=== PATIENT | male | born 1960 | race Caucasian/White ===

== ENCOUNTER → 2019-02-05 09:31 | Outpatient (CLI) | payer BC ==
--- NOTE | ~2019-02-05 | ST ---
PATIENT:JENNIFER HAND MEDICAL RECORD: [id number] SEX: M LOCATION:[facility] ORDER #: ADMISSION DATE: 02/05/19 AGE OF PATIENT: 58 REFERRING PHYSICIAN: INTERPRETING PHYSICIAN: GERALDINE WINCHESTER MD DATE OF SERVICE: 02/05/2019 PROCEDURE: Nuclear stress test. INDICATIONS: Shortness of breath, abnormal ECG, atrial fibrillation. He was exercised on standard Lexiscan protocol with 33 mCi of sestamibi injected at peak stress, 11 mCi were used previously for rest images. FINDINGS: SPECT imaging reveals a dilated cardiomyopathy, ejection fraction of 32%, decreased thickening and brightening throughout the inferior and apical segments. SPECT imaging: Sestamibi was used as a myocardial perfusion agent. There is a definite fixed perfusion defect at the apex, mixed perfusion defect in the inferior wall, partially fixed, partially reversible. The remaining segments with homogeneous uptake at rest and stress. OVERALL IMPRESSION: This is an abnormal nuclear stress test suggestive of an ischemic cardiomyopathy, ejection fraction of 32% with apical fixed perfusion defect from a previous myocardial infarction; however, continued reversibility throughout the inferior segments suggestive of ongoing hemodynamically significant coronary artery disease. This is at least an intermediate possibly high risk study secondary to the low ejection fraction, ongoing ischemic burden throughout and moderate amount of myocardium. Would proceed with coronary angiography as a followup study. TRANSINT:[id number] Voice Confirmation ID: [id number] DOCUMENT ID: [id number] GERALDINE WINCHESTER MD CC: [id number] DICTATION DATE: 02/06/19 1553 COUNSELOR MANAGER: 02/07/19 1005 DEP CLI 02/05/19 [address] [address] [id number] [place] [id number]
--- NOTE | ~2019-02-05 | EC ---
PATIENT:JENNIFER HAND DATE OF SERVICE: 02/05/19 SEX: M MEDICAL RECORD: [id number] DATE OF : 56 LOCATION:[facility] AGE OF PATIENT: 58 ADMISSION DATE: 02/05/19 REFERRING PHYSICIAN: INTERPRETING PHYSICIAN: GERALDINE OLMSTEAD MD ECHOCARDIOGRAM REPORT ECHO CHARGES 4 ECHO COMPLETE Date: 02/05/19 CLINICAL DIAGNOSIS: ATRIAL FIB ECHOCARDIOGRAPHIC MEASUREMENTS (adult normal given) AC root (d.<3.7cm) 4.2 cm LV Septum d (<1.2 cm> 1.4 cm Valve Excursion 2.2 cm LV Septum (systole) 1.5 cm Left Atria (s.<4.0cm> 4.6 cm LVPW d(<1.2cm) 1.6 cm RV (d.<2.3cm) 5.3 cm LVPW (sytole) 1.7 cm LV diastole(<5.6CM) 6.4 cm MV E-F(>70mm/sec) cm LV systole 5.7 cm LVOT Diameter 2.0 cm MV exc.(>10mm) 1.8 cm Est.ejection fraction (50-75%) % DOPPLER: LVIT cm/sec A 29.0 cm/sec E 87.0 cm/sec LA cm/sec RVSP 42 mmHg LVOT 103 cm/sec AOP1/2T m/s Asc. Ao 146 cm/sec RVOT 69 cm/sec RA cm/sec PA 99 cm/sec AV Gradient Peak 8.51 mmHg AV Mean 4.75 mmHg AV Area 2.6 cm MV Gradient Peak 4.39 mmHg MV Mean 1.43 mmHg MV Area cm COMMENTS: Veneer Sorter: Aysha ZELAYA Rail Car Maintenance Mechanic: 1 Dr. Olmstead TAPE# PACS Pericardial Effusion N DATE OF SERVICE: 02/05/2019 FINDINGS: 1. Left ventricular chamber size is dilated. Left ventricular systolic function is markedly reduced. Overall ejection fraction 25% to 30%. 2. Left atrium is dilated at 4.6 cm. Right atrium and right ventricular chamber sizes are as well moderately dilated giving 4-chamber dilatation. 3. Valvular structures have normal structure and motion. 4. Doppler interrogation reveals mild mitral regurgitation, mild tricuspid regurgitation, no other valvular insufficiency or stenosis. Pulmonary systolic ECHOCARDIOGRAM REPORT [id number] JENNIFER HAND pressure is estimated at 42 mmHg. 5. No evidence of pericardial effusion or left ventricular thrombus. 6. The patient is in atrial fibrillation during the study. TRANSINT:[id number] Voice Confirmation ID: [id number] DOCUMENT ID: [id number] GERALDINE OLMSTEAD MD CC: [id number] DICTATION DATE: 02/06/19 1025 SKEIN WINDER: 02/06/19 1105 DEP CLI 02/05/19 [facility] [address] [place] [id number]
== END | disposition home or self-care (01) ==
LOC: D.HCCARDIO 09:31
PROVIDERS: ATTEND Internal Medicine Interventional Cardiology
DX: I48.91 Unspecified atrial fibrillation (principal)

== ENCOUNTER 2019-02-15 09:00 | Outpatient (CLI) | payer BC | END 2019-02-15 14:30 | disposition home or self-care (01) | LOC: D.CATH 09:00 | DX: I20.9 Angina pectoris, unspecified (principal); R94.30 Abnormal result of cardiovascular function study, unspecified; I48.91 Unspecified atrial fibrillation ==

== ENCOUNTER 2019-02-27 09:57 | Outpatient (CLI) | payer BC ==
[~2019-02-27] VITALS: Ht 182.9 cm; Wt 100.0 kg
--- NOTE | ~2019-02-27 | HEMODYNAMI ---
PATIENT:JENNIFER HAND MEDICAL RECORD: [id number] : 56 LOCATION:[facility] ADMISSION DATE: 02/27/19 Generatedon:02/27/201911:25 Patient name: JENNIFER HAND Patient #: [id number] SSN: : 1960 Date of study: 02/27/2019 Page: Of Hemodynamic Procedure Report Patient Data Patient Demographics Procedure consent was obtained First Name: JENNIFER Gender: Male Last Name: PEACE : 1960 Patient #: [id number] Age: 58 year(s) Race: Unknown Additional ID: [id number] Contact details [address]: [address] [place] [address] State: [place] City: [place] Zip code: [address] Past Medical History Allergies: No known allergies Admission Admission Data Admission Date: 02/27/2019 Admission Time: 9:57 Admit Source: Other Insurance Payor: Private health insurance Height (in.): 72.05 BSA: 2.22 (m2) Height (cm.): 183 BMI: 29.86 (kg/m2) Weight (lbs.): 220.46 Weight (kg.): 100 Lab Results Lab Result Date: 02/27/2019 Lab Result Time: 0:00 Biochemistry Name Units Result Min Max BUN mg/dl 23 --(----)-* 7 18 Creatinine mg/dl 0.9 --(-*--)-- 0.6 1.3 CBC Name Units Result Min Max Hemoglobin g/dl 16.2 --(--*-)-- 13.5 17.5 Procedure Procedure Types Cath Procedure Diagnostic Procedure Cardioversion External Procedure Description Procedure Date Procedure Date: 02/27/2019 Procedure Start Time: 11:14 Procedure End Time: 11:16 Procedure Staff Name Function Antonio Olmstead MD Performing Physician Kacey Wilkinson RT Monitor Phillip Walsh RT Scrub Chiquis Garay RN Nurse Johnny Randall Jr, CRNA Additional personnel Procedure Data Cath Procedure Fluoroscopy Diagnostic fluoroscopy Total fluoroscopy Time: 0 time: 0 min min Diagnostic fluoroscopy Total fluoroscopy dose: 0 dose: 0 mGy mGy Contrast Material Contrast Material Type Amount (ml) Isovue 370 0 Estimated blood loss: 0 ml Procedure Complications No complications Procedure Medications Medication Administration Route Dosage 0.9% NaCl I.V. 100 ml/hr Oxygen etCO2 Nasal cannula 2 l/min Refer to Anesthesia Notes for Sedation Medications Hemodynamics Rest BSA: 2.22 (m2) HGB: 16.2 (g/dl) O2 Consumption: Estimated: 271.64 (ml/min) O2 Consumption indexed: Estimated:122.36 (ml/min/m) Heart Rate: 83 (bpm) Snapshots Pre Cath Intra NCS Post Cath Vital Signs Time Heart Resp SPO2 etCO2 NIBP (mmHg) Rhythm Pain Sedation Rate (ipm) (%) (mmHg) Status Level (bpm) 11:07:49 88 23 100 31.4 136/100(111) A-Fib 0 (11) 10(A) , No pain 11:11:50 90 25 100 29.2 127/96(112) A-Fib 0 (11) 10(A) , No pain 11:15:48 65 20 98 29.9 121/84(99) NSR 0 (11) 5(A) , No pain 11:23:33 67 20 99 29.9 128/96(100) NSR 0 (11) 10(A) , No pain 11:24:45 0 Aborted NSR 0 (11) 10(A) , No pain Medications Time Medication Route Dose Verified Delivered Reason Notes Effective ness by by 11:09:37 0.9% NaCl I.V. 100 Antonio Siuyla used for ml/hr Ishan Garay gore seamer 11:09:44 Oxygen etCO2 2 Antonio Chiquis used for Nasal l/min Ishan Garay procedure cannula RN 11:09:50 Refer to Antonio Sim Anesthesia Ishan Garay Notes for RN Sedation Medications Procedure Log Time Note 10:55:22 Informed consent obtained and on chart 10:55:28 Diagnostic Cath Status : Elective 10:55:52 Kacey Wilkinson RT(R) sent for patient. Start room use. 10:55:53 Time tracking: Regular hours (M-F 7:00 - 5:00) 10:55:58 Plan of Care:Hemodynamics will remain stable., Cardiac rhythm will remain stable., Comfort level will be maintained., Respiratory function will remain adequate., Patient/ family verbilizes understanding of procedure., Procedure tolerated without complication., Recovers from procedure without complications.. 10:59:47 Lab Result : Hemoglobin 16.2 g/dl 10:59:47 Lab Result : Creatinine 0.9 mg/dl 10:59:47 Lab Result : BUN 23 mg/dl 11:02:01 Patient received from Pre/Post Procedure Room to CCL 2 Alert and oriented. Tansferred to table in Supine position. 11:02:02 Warm blankets applied, and rosalind hugger turned on for patient comfort. 11:02:03 Correct patient and procedure confirmed by team. 11:02:03 ECG and BP/O2 sat monitors applied to patient. 11:06:58 Vital chart was started 11:07:29 Baseline sample Acquired. 11:07:35 Rhythm: atrial fibrillation 11:07:36 Full Disclosure recording started 11:07:40 H&P Date Dictated: 02/27/2019 Within 30 days and on chart., H&P Addendum completed by physician on day of procedure. (MUST COMPLETE FOR ALL OUTPATIENTS). 11:07:41 Pre-procedure instructions explained to patient. 11:07:42 Pre-op teaching completed and patient verbalized understanding. 11:07:43 Family in patients room. 11:07:45 Patient NPO since Midnight. 11:07:47 Is the patient allergic to Iodine/contrast media? No. 11:07:48 Was the patient premedicated? No 11:07:49 Is patient on blood thinner?Yes 11:07:53 ACC The patient was administered the following blood thiners within the last 24 hours: Eliqubandar 11:07:56 Patient diabetic? No. 11:07:58 Previous problem with sedation/anesthesia? No ? 11:08:00 Snore? Yes 11:08:01 Sleep apnea? No 11:08:02 Deviated septum? No 11:08:02 Opens mouth fully? Yes 11:08:03 Sticks out tongue? Yes 11:08:05 Airway obstruction? No ? 11:08:07 Dentures? No ? 11:08:10 Pre procedure: right dorsailis pedis pulse 2+ Normal; easily identifiable; not easily obliterated 11:08:12 Pre procedure: left dorsailis pedis pulse 2+ Normal; easily identifiable; not easily obliterated 11:08:14 Patient pain scale 0/10 ?. 11:08:19 IV patent on arrival in left antecubital with 0.9% NaCl at [facility]. 11:08:22 Lab results completed and on chart. 11:08:30 Alarms reviewed by R. N. 11:08:30 Sharps counted by scrub and verified by R.N. 11::00 Admit Source: Other 11:: Patient Weight : 220.46 lbs 11::08 Patient Height : 72.05 inches 11:09:37 0.9% NaCl 100 ml/hr I.V. was administered by Chiquis Garay RN; used for procedure; 11::44 Oxygen 2 l/min etCO2 Nasal cannula was administered by Chiquis Garay RN; used for procedure; 11::50 Refer to Anesthesia Notes for Sedation Medications was administered by Chiquis Garay RN; ; 11:10:25 Insurance Payor : Private health insurance 11:12:50 Physician arrived 11:12:50 --------ALL STOP TIME OUT------ 11:12:50 Final Timeout: patient, procedure, and site verified with staff and physician. All members of the team are in agreement. 11:13:00 Procedure started. 11:13:04 Maximum allowable Isovue 370 dose 300ml. Physician notified. (300ml for normal creatinines. For patients with creatinine of 1.7 or higher multiply weight(kg) x 5 divided by creatinine.) 11:13:08 Fire Safety Assessment: A--An alcohol-based skin anteseptic being used preoperatively., C--Open oxygen or nitrous oxide is being used., D--An ESU, laser, or fiber-optic light is being used. 11:13:16 Physical assessment completed. ASA score P 2 - A patient with mild systemic disease as per Antonio Olmstead MD. 11:13:21 Sedation plan: TIVA Medication:Propofol 11:13:36 Quick combo pads placed on patients chest and back. 11:13:40 Defibrillator synced and charged to 275 Joules. 11:14:49 Shock delivered. 11:15:05 Patient cardioverted to sinus rhythm . 11:15:17 Procedure ended.(Physican Out) 11:16:01 Fluoroscopy time 00.00 minutes. 11:16:03 Fluoroscopy dose: 0 mGy 11:16:03 Flurop Dose total: 0 11:16:07 Contrast amount:Isovue 370 0ml. 11:16:08 Sharps counted by scrub and verified by R.N. 11:16:16 Post procedure rhythm: sinus rhythm 11:16:18 Estimated blood loss: 0 ml 11:16:19 Post procedure instruction explained to patient.Patient verbalizes understanding. 11:16:20 Patient needs reinforcement of post procedure teaching. 11:16:37 Procedure type changed to Cath procedure, Diagnostic procedure, Cardioversion External 11:16:38 Procedure and supply charges have been captured, reviewed, submitted and are correct. 11:16:43 Procedure Complication : No complications 11:16:45 Vital chart was stopped 11:16:45 See physician's report for complete and final results. 11:16:48 Report given to Pre/Post Procedure Room. 11:16:52 Patient transfered to Pre/Post Procedure Room with Stretcher. 11:16:56 Procedure ended. 11:16:56 Full Disclosure recording stopped 11:17:07 End room use (Document Last) Signature Audit Earlimart Stage Time Signature Unsigned Intra-Procedure 02/27/2019 Kacey Wilkinson 11:25:00 AM RT(R) Signatures Monitor : Kacey Wilkinson RT Signature : Date : Time : [place] [id number] [place] [address]
[~2019-02-27 09:57] MED LIST: BETAPACE 80 MG80 MG PO; ELIQUIS5 MG PO; ULTRAM50 MG PO
[2019-02-27 10:30] VITALS: BP 130/91; Ht 182.9 cm; Wt 100.0 kg
[2019-02-27 10:42] LABS: BASOPHILS 0.3 % (0-2); EOSINOPHILS 1.2 % (0-7); HEMATOCRIT 44.2 % (42.0-54.0); HEMOGLOBIN 16.2 g/dL (13.5-17.5); IMMATURE GRANULOCYTES 0.3 % (0-5); LYMPHOCYTES 26.7 % (15-50); MCH 30.7 pg (26.0-34.0); MCHC 36.7 g/dL (31.0-37.0); MCV 83.9 fL (80.0-100.0); MONOCYTES 11.6 % (2-11); NEUTROPHILS 59.9 % (40-80); PLATELET COUNT 194 10x3/uL (130-400); RBC 5.27 10x6/uL (4.20-6.10); RDW 12.3 % (11.5-14.5); WBC 7.4 10x3/uL (4.8-10.8)
[2019-02-27 10:49] LABS: CALC OSMOLALITY 282 mosm/kg (275-300); CALCIUM 9.4 mg/dL (8.5-10.1); CARBON DIOXIDE 25.3 mmol/L (21.0-32.0); CHLORIDE - SERUM 106 mmol/L (98-107); CREATININE - SERUM 0.9 mg/dL (0.6-1.3); GLUCOSE 105 mg/dL (74-106); SODIUM 140 mmol/L (136-145); UREA NITROGEN 23 mg/dL (7-18); eGFR NON AFRICAN AMERICAN > 90 mL/min (90-120)
[2019-02-27 10:50] LABS: POTASSIUM - SERUM 5.4 mmol/L (3.5-5.1)
[2019-02-27 10:53] LABS: INR 1.14 (0.85-1.17); PROTIME 14.1 SECONDS (11.6-15.0)
--- NOTE | 2019-02-27 11:28 | NUR ---
PT ARRIVED BY STRETCHER. PLACED ON MONITORS. ASSESSMENT COMPLETED. PT IN SINUS RHYTHM ON MONITOR. CALL LIGHT WITHIN REACH
--- NOTE | 2019-02-27 11:40 | NUR ---
PT SET UP WITH SANDWICH TRAY AND DRINK. DENIES NAUSEA. VSS. SINUS RHYTHM RATE 73.
--- NOTE | 2019-02-27 12:11 | NUR ---
LEFT HAND PIV D/C'D WITH CATH TIP INTACT. PT TOLERATED WELL. VSS. PT IN NSR.
--- NOTE | 2019-02-27 12:23 | NUR ---
PT UP AND DRESSED. DISCUSSED DISCHARGE INSTRUCTIONS WITH PT. HE VOICED UNDERSTANDING. TAXI CALLED PER PT REQUEST. AMBULATED TO RESTROOM. VOIDED WITHOUT DIFFICULTY.
--- NOTE | 2019-02-27 12:30 | NUR ---
PT TAKEN OUT TO [facility] BY WHEELCHAIR. ALL BELONGINGS AND PAPERWORK IN HAND. NO S/S OF DISTRESS NOTED.
--- NOTE | 2019-03-01 09:40 | OP ---
PATIENT NAME: JENNIFER HAND MEDICAL RECORD: [id number] :56 LOCATION:D.CAT ADMISSION DATE: SURGEON: GERALDINE WINCHESTER MD DATE OF OPERATION: 02/27/2019 PROCEDURE: DC cardioversion. INDICATION: Atrial fibrillation. PROCEDURE IN DETAIL: IV conscious sedation was per anesthesia. He received 1 shock at 275 joules restoring sinus rhythm. Continuous heart rate, O2 saturation, blood pressure monitoring all undertaken, all of which remained stable. OVERALL IMPRESSION: Successful DC cardioversion from atrial fibrillation to sinus rhythm. TRANSINT:[id number] Voice Confirmation ID: [id number] DOCUMENT ID: [id number] GERALDINE WINCHESTER MD at 0940 CC: [id number] DICTATION DATE: 02/27/19 1116 UNIT SUPERVISOR: 02/27/19 1245 DEP CLI 02/27/19 [id number] [place] [address]
== END 2019-02-27 12:30 | disposition home or self-care (01) ==
LOC: D.CATH 09:57
PROVIDERS: ATTEND Internal Medicine Interventional Cardiology
DX: I48.91 Unspecified atrial fibrillation (principal); Z01.812 Encounter for preprocedural laboratory examination

== ENCOUNTER 2019-06-11 09:46 | Outpatient (CLI) | payer BC ==
[~2019-06-11] VITALS: Ht 182.9 cm; Wt 100.0 kg
--- NOTE | ~2019-06-11 | HEMODYNAMI ---
PATIENT:JENNIFER HAND MEDICAL RECORD: [id number] : 56 LOCATION:D.CAT ADMISSION DATE: 06/11/19 Generatedon:06/11/201912:48 Patient name: JENNIFER HAND Patient #: [id number] SSN: : 1960 Date of study: 06/11/2019 Page: Of Hemodynamic Procedure Report Patient Data Patient Demographics Procedure consent was obtained First Name: JENNIFER Gender: Male Last Name: PEACE : 1960 Patient #: [id number] Age: 58 year(s) Race: Unknown Additional ID: [id number] Contact details Address: [address] [place] [address] State: [place] City: [place] Zip code: [address] Past Medical History Allergies: No known allergies Admission Admission Data Admission Date: 06/11/2019 Admission Time: 9:46 Procedure Procedure Types Cath Procedure Diagnostic Procedure Cardioversion External Procedure Description Procedure Date Procedure Date: 06/11/2019 Procedure Start Time: 12:37 Procedure End Time: 12:42 Procedure Staff Name Function Antonio Olmstead MD Performing Physician Phillip Walsh RT Monitor Becky Burch RT Service Desk Associate Scott Arriaga RN Nurse Richardson Travis CRNA Additional personnel Procedure Data Cath Procedure Fluoroscopy Diagnostic fluoroscopy Total fluoroscopy Time: 0 time: 0 min min Diagnostic fluoroscopy Total fluoroscopy dose: 0 dose: 0 mGy mGy Contrast Material Contrast Material Type Amount (ml) Isovue 300 0 Estimated blood loss: 0 ml Procedure Complications No complications Procedure Medications Medication Administration Route Dosage 0.9% NaCl I.V. 100 ml/hr Oxygen etCO2 Nasal cannula 5 l/min Refer to Anesthesia Notes for Sedation Medications Hemodynamics Rest Heart Rate: 100 (bpm) Snapshots Pre Cath Intra NCS Post Cath Vital Signs Time Heart Resp SPO2 etCO2 NIBP (mmHg) Rhythm Pain Sedation Rate (ipm) (%) (mmHg) Status Level (bpm) 12:19:30 93 24 99 32.2 128/90(115) NSR 0 (11) 10(A) , No pain 12:23:37 86 23 99 32.3 131/83(115) NSR 0 (11) 10(A) , No pain 12:28:30 86 14 98 30.7 138/90(104) NSR 0 (11) 10(A) , No pain 12:32:38 97 23 98 33.7 141/97(110) NSR 0 (11) 10(A) , No pain 12:36:46 91 25 99 21 139/96(113) NSR 0 (11) 8(A) , No pain 12:40:51 64 32 97 28.4 116/103(114) NSR 0 (11) 9(A) , No pain Medications Time Medication Route Dose Verified Delivered Reason Notes Effective ness by by 12:20:29 0.9% NaCl I.V. 100 Scott Scott Per ml/hr Corina Arriaga physician RN RN 12:20:45 Oxygen etCO2 5 Scott Scott for low Nasal l/min Lorigan Gracieigan 02 sats cannula RN RN 12:36:50 Refer to Scott Scott for Anesthesia Corina Arriaga sedation Notes for RN RN Sedation Medications Procedure Log Time Note 11:55:08 Becky Burch RT(R) sent for patient. Start room use. 12:13:10 Time tracking: Regular hours (M-F 7:00 - 5:00) 12:13:16 Plan of Care:Hemodynamics will remain stable., Cardiac rhythm will remain stable., Comfort level will be maintained., Respiratory function will remain adequate., Patient/ family verbilizes understanding of procedure., Procedure tolerated without complication., Recovers from procedure without complications.. 12:13:27 Patient arrived from Pre/Post Procedure Room to CCL 2. Patient remains on bed/stretcher for procedure. 12:13:29 Signed procedure consent form obtained from patient. 12:13:30 Warm blankets applied, and rosalind hugger turned on for patient comfort. 12:13:30 Correct patient and procedure confirmed by team. 12:13:31 ECG and BP/O2 sat monitors applied to patient. 12:17:44 Vital chart was started 12:17:45 Baseline sample Acquired. 12:17:51 Rhythm: atrial fibrillation 12:18:09 Richardson Travis CRNA present and monitoring patient for TIVA. 12:20:17 H&P Date Dictated: 05/29/2019 Within 30 days and on chart., H&P Addendum completed by physician on day of procedure. (MUST COMPLETE FOR ALL OUTPATIENTS). 12:20:18 Pre-procedure instructions explained to patient. 12:20:18 Pre-op teaching completed and patient verbalized understanding. 12:20:20 Family in patients room. 12:20:21 Patient NPO since Midnight. 12:20:22 Is the patient allergic to Iodine/contrast media? No. 12:20:24 Is patient on blood thinner?Yes 12:20:26 ACC The patient was administered the following blood thiners within the last 24 hours: Eliquis 12:20:28 Patient diabetic? No. 12:20:29 0.9% NaCl 100 ml/hr I.V. was administered by Scott Arriaga RN; Per physician; 12:20:31 Previous problem with sedation/anesthesia? No ? 12:20:32 Snore? Yes 12:20:33 Sleep apnea? No 12:20:34 Deviated septum? No 12:20:34 Opens mouth fully? Yes 12:20:35 Sticks out tongue? Yes 12:20:37 Airway obstruction? No ? 12:20:38 Dentures? No ? 12:20:45 Oxygen 5 l/min etCO2 Nasal cannula was administered by Scott Arriaga RN; for low 02 sats; 12:20:50 Patient pain scale 0/10 ?. 12:21:34 IV patent on arrival in left forearm with 0.9% NaCl at KVO. 12:21:36 Lab results completed and on chart. 12:21:40 Alarms reviewed by RCaitlin Salazar 12:21:46 Quick Combo opened to sterile field. 12:21:51 Quick combo pads placed on patients chest and back. 12:35:44 --------ALL STOP TIME OUT------ 12:35:45 Final Timeout: patient, procedure, and site verified with staff and physician. All members of the team are in agreement. 12:35:53 Fire Safety Assessment: C--Open oxygen or nitrous oxide is being used., E--There are other possible contributors. 12:35:55 Physical assessment completed. ASA score P 2 - A patient with mild systemic disease as per Antonio Olmstead MD. 12:36:00 Sedation plan: TIVA Medication:Propofol 12:36:50 Refer to Anesthesia Notes for Sedation Medications was administered by Scott Arriaga RN; for sedation; 12:37:26 Procedure started. 12:37:26 Full Disclosure recording started 12:37:32 Defibrillator synced and charged to 275 Joules. 12:37:34 Shock delivered. 12:37:54 Patient cardioverted to sinus rhythm . 12:38:00 Procedure ended.(Physican Out) 12:38:23 Fluoroscopy time 00.00 minutes. 12:38:25 Fluoroscopy dose: 0 mGy 12:38:25 Flurop Dose total: 0 12:38:27 Dose Area Product 0 mGy/cm. 12:38:34 Contrast amount:Isovue 300 0ml. 12:38:44 Post-procedure physical assessment completed. ASA score P 2 - A patient with mild systemic disease as per Antonio Olmstead MD. 12:38:47 Post procedure rhythm: sinus rhythm 12:38:49 Estimated blood loss: 0 ml 12:38:51 Post procedure instruction explained to patient.Patient verbalizes understanding. 12:38:51 Patient needs reinforcement of post procedure teaching. 12:38:55 Procedure and supply charges have been captured, reviewed, submitted and are correct. 12:42:23 Procedure Complication : No complications 12:42:26 Vital chart was stopped 12:42:26 See physician's report for complete and final results. 12:42:32 Report given to Pre/Post Procedure Room. 12:42:34 Patient transfered to Pre/Post Procedure Room with Stretcher. 12:42:36 Procedure ended. 12:42:36 Full Disclosure recording stopped 12:42:43 End room use (Document Last) 12:43:41 Phillip Walsh RT(R) was relieved by Phillip Walsh RT(R) as monitoring person 12:45:05 Phillip Walsh RT(R) was relieved by Phillip Walsh RT(R) as monitoring person Device Usage Item Manufacture Quantity Catalog Hospital Part Current Minimal Lot# / Name Number Charge Number Stock Korey manning# Code ServiceGems 1 [id number] Combo Signature Audit Godfrey Stage Time Signature Unsigned Intra-Procedure 06/11/2019 Scott 12:43:30 PM Corina CHU Intra-Procedure 06/11/2019 Phillip Walsh 12:44:58 PM RT(R) Intra-Procedure 06/11/2019 Antonio Olmstead 12:48:10 [id number] [place] [address]
[2019-06-11 10:45] VITALS: BP 123/85; Ht 182.9 cm; Wt 100.0 kg
[2019-06-11 11:00] LABS: BASOPHILS 0.2 % (0-2); EOSINOPHILS 1.4 % (0-7); HEMATOCRIT 44.1 % (42.0-54.0); HEMOGLOBIN 16.5 g/dL (13.5-17.5); IMMATURE GRANULOCYTES 0.2 % (0-5); LYMPHOCYTES 28.4 % (15-50); MCH 30.3 pg (26.0-34.0); MCHC 37.4 g/dL (31.0-37.0); MCV 80.9 fL (80.0-100.0); MONOCYTES 10.4 % (2-11); NEUTROPHILS 59.4 % (40-80); PLATELET COUNT 159 10x3/uL (130-400); RBC 5.45 10x6/uL (4.20-6.10); WBC 6.5 10x3/uL (4.8-10.8)
[2019-06-11 11:07] LABS: CALC OSMOLALITY 282 mosm/kg (275-300); CALCIUM 9.2 mg/dL (8.5-10.1); CARBON DIOXIDE 28.4 mmol/L (21.0-32.0); CHLORIDE - SERUM 106 mmol/L (98-107); CREATININE - SERUM 0.9 mg/dL (0.6-1.3); GLUCOSE 96 mg/dL (74-106); POTASSIUM - SERUM 4.3 mmol/L (3.5-5.1); SODIUM 141 mmol/L (136-145); UREA NITROGEN 18 mg/dL (7-18); eGFR NON AFRICAN AMERICAN > 90 mL/min (90-120)
[2019-06-11 11:13] LABS: INR 1.26 (0.85-1.17); PROTIME 15.3 SECONDS (11.6-15.0)
--- NOTE | 2019-06-11 12:50 | NUR ---
PT RECEIVED VIA STRETCHER FROM SHIP WASHER POST SUCCESSFUL CARDIOVERSION. PT AWAKE AND ALERT, DENIES PAIN OR DISCOMFORT. SLIGHT REDDNED AREA TO UPPER CHEST. HR NSR RATE 66, BP 114/67, O2 SAT 97 ON RA, RR 17. IV PATENT INFUSING VIA L ARM PER ORDERS. SANDWICH TRAY AND WATER SERVED. CALL LIGHT IN REACH, DAUGHTER AT BS.
--- NOTE | 2019-06-11 13:15 | NUR ---
PT DOING WELL, DENIES PAIN OR NEEDS. HR REMAINS NSR RATE 64, BP 103/71. TOLERATED SANDWICH AND WATER. CALL LIGHT IN REACH, DAUGHTER REMAINS AT BS.
--- NOTE | 2019-06-11 13:35 | NUR ---
IV REMOVED W CATH INTACT, MONITORS REMOVED. DISCHARGE INSTRUCTIONS REVIEWED W PT AND DAUGHTER, BOTH VERBALIZED UNDERSTANDING. HR REMAINS IN NSR. PT UP TO DRESS FOR DISCHARGE
--- NOTE | 2019-06-11 13:38 | OP ---
PATIENT NAME: JENNIFER HAND MEDICAL RECORD: [id number] :56 LOCATION:D.CAT ADMISSION DATE: SURGEON: GERALDINE WINCHESTER MD DATE OF OPERATION: 06/11/2019 PROCEDURE: DC cardioversion. INDICATION: Atrial fibrillation. PROCEDURE IN DETAIL: IV conscious sedation was per anesthesia. He received 1 shock at 275 joules restoring sinus rhythm. OVERALL IMPRESSION: Successful DC cardioversion from atrial fibrillation to sinus rhythm. TRANSINT:[id number] Voice Confirmation ID: [id number] DOCUMENT ID: [id number] GERALDINE WINCHESTER MD at 1338 CC: [id number] DICTATION DATE: 06/11/19 1240 RIVER DRIVER: 06/11/19 [id number] [place] [address]
== END 2019-06-11 13:45 | disposition home or self-care (01) ==
LOC: D.CATH 09:46
PROVIDERS: ATTEND Internal Medicine Interventional Cardiology
DX: I48.91 Unspecified atrial fibrillation (principal)